=== PATIENT | male | born 1955 | race Caucasian/White ===

== ENCOUNTER 2018-10-03 09:33 | Outpatient (CLI) | payer MEDICARE, MEDICAID, SELFPAY ==
[2018-10-03 15:59] LABS: Abs Immature Grans 0.03 k/cumm (0.0-0.09); Absolute Basophil Count 0.03 k/cumm (0.0-0.2); Absolute Lymphocyte Count 2.27 k/cumm (1.2-3.4); Absolute Monocyte Count 0.87 k/cumm (0.11-0.7); Absolute Neutrophil Count 5.11 k/cumm (1.2-6.7); Basophils % 0.4; Eosinophils % 1.2; HCT 50.8 % (40.0-50.0); HGB 17.4 g/dL (13.5-17.5); Immature Grans % 0.4; Mean Corp. HGB Concentration 34.3 g/dL (32.0-36.0); Mean Corpuscular Hemoglobin 32.2 pg (27.0-33.0); Mean Corpuscular Volume 94.1 fL (80-95); Mean Platelet Volume 11.4 fL (8.0-11.0); Monocytes % 10.3; Neutrophils % 60.7; Platelet Count 158 x1000/uL (130-400); RBC Distribution Width 14.9 % (11.8-14.1); White Blood Cell Count 8.41 k/cumm (4.4-10.8)
[2018-10-03 16:14] LABS: ALT 66 U/L (12-78); AST 33 U/L (15-37); Albumin 4.1 g/dL (3.4-5.0); Alkaline Phosphatase 62 U/L (46-116); Anion Gap 11.2 mmol/L (3-11); BUN 25 mg/dL (7-18); Bilirubin, Total 0.4 mg/dL (0.2-1.0); CO2 26.8 mmol/L (21.0-32.0); CREATININE 1.17 mg/dL (0.70-1.30); Calcium 9.3 mg/dL (8.5-10.1); Chloride 102 mmol/L (98-107); Glucose 106 mg/dL (70-100); LDH 174 U/L (85-227); Potassium 4.3 mmol/L (3.5-5.1); Sodium 140 mmol/L (136-145); Total Protein 6.9 g/dL (6.4-8.2)
== END 2018-10-03 09:53 ==
LOC: LBN 09:42 → LBO 15:24
PROVIDERS: PCP Internal Medicine; Visit Provider Internal Medicine Hematology & Oncology
DX: C82.00 Follicular lymphoma grade I, unspecified site (principal)
CPT/HCPCS: 36415; 80053; 83615; 85025

== ENCOUNTER 2019-03-27 10:16 | Outpatient (CLI) | payer MEDICARE, SELFPAY ==
[2019-03-27 17:16] LABS: Abs Immature Grans 0.02 k/cumm (0.0-0.09); Absolute Basophil Count 0.02 k/cumm (0.0-0.2); Absolute Eosinophil Count 0.13 k/cumm (0.0-0.7); Absolute Lymphocyte Count 1.59 k/cumm (1.2-3.4); Absolute Monocyte Count 0.65 k/cumm (0.11-0.7); Absolute Neutrophil Count 4.29 k/cumm (1.2-6.7); Basophils % 0.3; Eosinophils % 1.9; HCT 48.7 % (40.0-50.0); HGB 16.7 g/dL (13.5-17.5); Immature Grans % 0.3; Lymphocytes % 23.7; Mean Corp. HGB Concentration 34.3 g/dL (32.0-36.0); Mean Corpuscular Hemoglobin 32.6 pg (27.0-33.0); Mean Corpuscular Volume 95.1 fL (80-95); Monocytes % 9.7; Neutrophils % 64.1; Platelet Count 152 x1000/uL (130-400); RBC 5.12 m/cumm (4.50-6.00); RBC Distribution Width 14.4 % (11.8-14.1)
[2019-03-27 18:31] LABS: ALT 67 U/L (12-78); AST 36 U/L (15-37); Albumin 3.9 g/dL (3.4-5.0); Alkaline Phosphatase 65 U/L (46-116); BUN 21 mg/dL (7-18); Bilirubin, Total 0.3 mg/dL (0.2-1.0); Calcium 9.1 mg/dL (8.5-10.1); Chloride 104 mmol/L (98-107); Glucose 115 mg/dL (70-100); LDH 174 U/L (85-227); Potassium 4.2 mmol/L (3.5-5.1); Sodium 141 mmol/L (136-145); Total Protein 6.5 g/dL (6.4-8.2)
== END 2019-03-27 10:36 ==
PROVIDERS: PCP Internal Medicine; Visit Provider Internal Medicine Hematology & Oncology
DX: C82.00 Follicular lymphoma grade I, unspecified site (principal)
CPT/HCPCS: 36415; 80053; 83615; 85025

== ENCOUNTER 2019-09-07 15:50 | Outpatient (CLI) | payer MEDICARE, SELFPAY ==
[2019-09-07 16:06] LABS: Abs Immature Grans 0.04 k/cumm (0.0-0.09); Absolute Basophil Count 0.03 k/cumm (0.0-0.2); Absolute Eosinophil Count 0.16 k/cumm (0.0-0.7); Absolute Monocyte Count 0.87 k/cumm (0.11-0.7); Absolute Neutrophil Count 5.91 k/cumm (1.2-6.7); Basophils % 0.3; Eosinophils % 1.8; HCT 51.2 % (40.0-50.0); HGB 17.5 g/dL (13.5-17.5); Immature Grans % 0.4; Lymphocytes % 21.3; Mean Corp. HGB Concentration 34.2 g/dL (32.0-36.0); Mean Corpuscular Hemoglobin 32.3 pg (27.0-33.0); Mean Corpuscular Volume 94.5 fL (80-95); Mean Platelet Volume 10.9 fL (8.0-11.0); Monocytes % 9.8; Neutrophils % 66.4; Platelet Count 166 x1000/uL (130-400); RBC 5.42 m/cumm (4.50-6.00); RBC Distribution Width 14.8 % (11.8-14.1); White Blood Cell Count 8.91 k/cumm (4.4-10.8)
[2019-09-07 17:03] LABS: ALT 62 U/L (16-63); AST 29 U/L (15-37); Albumin 4.1 g/dL (3.4-5.0); Alkaline Phosphatase 71 U/L (46-116); Anion Gap 11.8 mmol/L (3-11); BUN 21 mg/dL (7-18); Bilirubin, Total 0.4 mg/dL (0.2-1.0); CO2 26.2 mmol/L (21.0-32.0); Chloride 103 mmol/L (98-107); Glucose 112 mg/dL (74-106); LDH 151 U/L (85-227); Potassium 4.3 mmol/L (3.5-5.1); Sodium 141 mmol/L (136-145); Total Protein 6.8 g/dL (6.4-8.2)
== END 2019-09-07 16:10 ==
PROVIDERS: PCP Internal Medicine; Visit Provider Internal Medicine Hematology & Oncology
DX: C82.91 Follicular lymphoma, unspecified, lymph nodes of head, face, and neck (principal)
CPT/HCPCS: 36415; 80053; 83615; 85025

== ENCOUNTER 2019-10-24 13:10 | Outpatient (REF) | payer MEDICARE, SELFPAY ==
[2019-10-24 20:47] LABS: Abs Immature Grans 0.03 k/cumm (0.0-0.09); Absolute Basophil Count 0.03 k/cumm (0.0-0.2); Absolute Eosinophil Count 0.14 k/cumm (0.0-0.7); Absolute Lymphocyte Count 1.91 k/cumm (1.2-3.4); Absolute Monocyte Count 1.03 k/cumm (0.11-0.7); Absolute Neutrophil Count 7.65 k/cumm (1.2-6.7); Basophils % 0.3; Eosinophils % 1.3; HCT 49.3 % (40.0-50.0); HGB 16.8 g/dL (13.5-17.5); Immature Grans % 0.3 %; Lymphocytes % 17.7; Mean Corp. HGB Concentration 34.1 g/dL (32.0-36.0); Mean Corpuscular Hemoglobin 31.8 pg (27.0-33.0); Mean Corpuscular Volume 93.4 fL (80-95); Mean Platelet Volume 11.9 fL (8.0-11.0); Monocytes % 9.5; Neutrophils % 70.9; Platelet Count 195 x1000/uL (130-400); RBC 5.28 m/cumm (4.50-6.00); RBC Distribution Width 14.3 % (11.8-14.1); White Blood Cell Count 10.79 k/cumm (4.4-10.8)
== END 2019-10-24 13:30 ==
LOC: NCHCN 13:10
PROVIDERS: PCP Internal Medicine; Visit Provider Physician Assistant
DX: C85.90 Non-Hodgkin lymphoma, unspecified, unspecified site (principal)
CPT/HCPCS: 85025

== ENCOUNTER 2019-11-07 16:38 | Outpatient (REF) | payer MEDICARE, SELFPAY ==
[2019-11-07 20:33] LABS: Hemoglobin A1C 7.4 % (3.8-5.6)
== END 2019-11-07 16:58 ==
LOC: NCHCN 16:38
PROVIDERS: PCP Internal Medicine; Visit Provider Physician Assistant
DX: R73.09 Other abnormal glucose (principal)
CPT/HCPCS: 83036

== ENCOUNTER 2020-03-12 01:17 | Outpatient (CLI) | payer MEDICARE, SELFPAY ==
[2020-03-12] MEDS: Omnipaque 350 MG/ML 50 ML BTL PO (09:04)
[2020-03-12] MEDS: Breeza Beverage 473 ML BTL PO (09:05)
[2020-03-12 09:22] LABS: Abs Immature Grans 0.02 k/cumm (0.0-0.09); Absolute Basophil Count 0.03 k/cumm (0.0-0.2); Absolute Eosinophil Count 0.14 k/cumm (0.0-0.7); Absolute Lymphocyte Count 1.56 k/cumm (1.2-3.4); Absolute Monocyte Count 0.65 k/cumm (0.11-0.7); Absolute Neutrophil Count 4.18 k/cumm (1.2-6.7); Basophils % 0.5; Eosinophils % 2.1; HCT 44.8 % (40.0-50.0); HGB 15.4 g/dL (13.5-17.5); Immature Grans % 0.3 %; Lymphocytes % 23.7; Mean Corp. HGB Concentration 34.4 g/dL (32.0-36.0); Mean Corpuscular Hemoglobin 32.9 pg (27.0-33.0); Mean Corpuscular Volume 95.7 fL (80-95); Mean Platelet Volume 11.1 fL (8.0-11.0); Monocytes % 9.9; Neutrophils % 63.5; Platelet Count 161 x1000/uL (130-400); RBC 4.68 m/cumm (4.50-6.00); RBC Distribution Width 14.7 % (11.8-14.1); White Blood Cell Count 6.58 k/cumm (4.4-10.8)
[2020-03-12 09:37] LABS: ALT 60 U/L (16-63); AST 34 U/L (15-37); Albumin 3.7 g/dL (3.4-5.0); Alkaline Phosphatase 58 U/L (46-116); Anion Gap 7.4 mmol/L (3-11); BUN 18 mg/dL (7-18); Bilirubin, Total 0.4 mg/dL (0.2-1.0); CO2 28.6 mmol/L (21.0-32.0); CREATININE 0.96 mg/dL (0.70-1.30); Calcium 8.4 mg/dL (8.5-10.1); Chloride 102 mmol/L (98-107); Glucose 159 mg/dL (74-106); LDH 160 U/L (85-227); Potassium 4.1 mmol/L (3.5-5.1); Sodium 138 mmol/L (136-145); Total Protein 6.4 g/dL (6.4-8.2)
[2020-03-12] MEDS: Normal Saline - Diluent 50 ML VIAL IV (10:29)
[2020-03-12] MEDS: Omnipaque 350 MG/ML 100 ML BTL IJ (10:29)
[2020-03-12] MEDS: Normal Saline Flush 10 ML SYR IVP (10:31)
--- NOTE | 2020-03-12 10:32 | DI.CT_ITS ---
EXAM: CT NECK CHEST ABD PEL W CLINICAL HISTORY: FOLLICULAR LYMPHOMA,C82.00,RESTAGING EXAM, COMPARE TO PRIOR. TECHNIQUE: Imaging Protocol: Axial computed tomography images with coronal and sagittal reformatted images were created and reviewed CONTRAST MATERIAL: Intravenous: Omnipaque 350 Contrast volume:150 cc contrast route:IV - Oral: Yes COMPARISON: CT CT CHEST ABDOMEN AND P from 01/01/2016 FINDINGS: CHEST: Heart and great vessels: There is no evidence pulmonary emboli or aortic dissection. The heart size i s normal. Coronary artery calcifications are seen. There is minimal aortic calcification. There are no pleural or pericardial effusions. Adenopathy: Small mediastinal and hilar lymph nodes, stable.. Lungs: No pulmonary nodules, mass or infiltrate. Bones: No lytic or blastic bony lesions are seen. There are degenerative disc changes. There is no evidence of spine or rib fracture. ABDOMEN: Liver: The liver is again noted to be enlarged and shows severe fatty infiltration.. No measurable m ass. Gallbladder and biliary tract: No radiodense calculus or dilation. Pancreas: Normal density, no abnormal calcifications or inflammatory process. Spleen: Normal. Kidneys: Normal size, contour and axis. No radiodense stones or obstructive uropathy. No masses seen. Small bilateral renal cysts. Circumaortic left renal vein. Adrenal glands: No masses seen. Abdominal Aorta: Abdominal portion non-dilated. Hzgl-bd-vlnelpsi calcification. PELVIS: Bladder: No gross wall thickening, focal mass or stones. Bowel: No obstruction or bowel wall thickening. Peritoneal cavity: No ascites, focal collection or mesenteric inflammatory response. Bones: No suspicious lesions or fractures. Degenerative disc changes and facet degenerative changes. Reproductive organs: Within normal limits. Lymph nodes: 12 millimeter left para-aortic lymph node. Other scattered lymph nodes measuring less t sadler 1 cm in the para-aortic region. There are several enlarged bilateral iliac chain lymph nodes, me asuring on the order of 15 millimeters. There is a right distal external iliac lymph node measuring 2.5 cm. A right inguinal lymph node measuring 14 millimeters is seen. Neck CT: No enlarged lymph nodes are seen. The parotid and submandibular glands are unremarkable. There is a small cyst in the left lobe of the thyroid. There is mild calcification at the common carotid bulbs with no significant stenosis. Mucous retention is noted within both maxillary sinuses. Degenerativ e disc changes are seen in the cervical spine. Impression: Interval increase in size of para aortic and bilateral external iliac chain lymph nodes as well as r ight inguinal lymph node.. The largest lymph node measures 2.5 cm in the distal right external iliac chain. No enlarged lymph nodes are seen in the neck or chest. RADIATION DOSE DELIVERED: 3,329.17mGy.cm Total DLP DATA REPOSITORY: All CT scans at this facility are submitted to the National Radiology Data Registry (NRDR) Dose Index Registry (DIR) with the [employer] (ACR). RADIATION OPTIMIZATION: All CT scans at this facility use at least one of these dose optimization te chniques: automated exposure control; mA and/or kV adjustment per patient size (includes targeted exa ms where dose is matched to clinical indication); or iterative reconstruction.
== END 2020-03-12 01:37 ==
PROVIDERS: PCP Internal Medicine; Visit Provider Internal Medicine Hematology & Oncology
DX: C82.00 Follicular lymphoma grade I, unspecified site (principal); Z72.0 Tobacco use; E66.01 Morbid (severe) obesity due to excess calories; Z68.41 Body mass index [BMI] 40.0-44.9, adult; Z12.89 Encounter for screening for malignant neoplasm of other sites; R59.0 Localized enlarged lymph nodes; K76.0 Fatty (change of) liver, not elsewhere classified; N28.1 Cyst of kidney, acquired
CPT/HCPCS: 70491; 74177; 80053; 71260; 83615; 85025; J3490; Q9967

== ENCOUNTER 2020-05-02 08:25 | Day surgery (SDC) | payer MEDICARE, SELFPAY ==
[2020-05-02 08:47] VITALS: BP 97/76; PULSE 60; RESP 16; TEMP 36.1; O2SAT 94
[2020-05-02] MEDS: Balanced Salt Soln.-PLUS 500 ML BAG (10:13)
[2020-05-02] MEDS: Tetracaine 0.5% 4 ML BTL OS (10:18)
[2020-05-02] MEDS: Lidocaine 1% Pres-Free 5 ML VIAL (10:18)
[2020-05-02] MEDS: Povidone-Iodine Ophth 30 ML BTL OS (10:19)
[2020-05-02] MEDS: Lidocaine 2% Jelly 6 ML SYR (10:19)
[2020-05-02] MEDS: Moxifloxacin-PF 1 MG/ML VIAL (10:30)
--- NOTE | 2020-05-02 10:46 | W.PM.DSUDISC ---
Discharge Plan Disposition Patient Disposition: HOME Condition: Good Discharge Details Attending Provider: Sukhi Cunningham Primary Care Provider: Reynaldo Hassan Meds and New Rx's Prescriptions: No Action multivitamin Tablet 1 tab PO DAILY RF: 0 diltiazem HCl 180 mg capsule,extended release 24 hr 360 mg PO HS RF: 0 metoprolol succinate 50 mg tablet extended release 24 hr 25 mg PO DAILY RF: 0 citalopram 20 mg tablet 20 mg PO DAILY RF: 0 rosuvastatin 20 mg Tablet 20 mg PO DAILY RF: 0 Eliquis 5 mg tablet 5 mg PO BID RF: 0 aspirin 162.5 mg Capsule,Extended Release 24hr 162 mg PO DAILY RF: 0 nitroglycerin 0.4 mg Tablet, Sublingual 0.4 mg sublingual DIRECTED PRNRF: 0 Discharge Instructions Stand Alone Forms: Post-op Topical Cataract, Anitra Aguilar (DSU) Discharge Orders Discharge Orders: Discharge Order (Routine); Ordered 05/02/20 Ordered By: Sukhi Cunningham DS: Diagnosis Discharge Diagnosis (1) Posterior subcapsular age-related cataract of left eye: Status: Resolved (2) Nuclear sclerotic cataract of left eye: Status: Resolved
--- NOTE | 2020-05-02 10:47 | W.PM.OP ---
Date of service: 05/02/20 Time of Service: 10:47 Operative Note Operative Note DATE OF PROCEDURE: 05/02/20 POST-OP DIAGNOSIS: same PROCEDURE: Cataract extraction using phacoemulsification with intraocular lens implant, left eye SURGEON: Sukhi Cunningham ANESTHESIA: MAC and local (sub-tenon's anesthetic infiltration) PATHOLOGY: none sent COMPLICATIONS: None Patient was transported to: same day Patient's condition: stable Implants: [employer] / [employer] Tecnis [id number] Indications: Progressive decreased vision due to cataract, left eye Procedure Description: CATARACT SURGERY OPERATIVE REPORT PREOPERATIVE DIAGNOSIS: Nuclear/posterior subcapsular cataract, left eye POSTOPERATIVE DIAGNOSIS: Same OPERATION: Cataract extraction using phacoemulsification with posterior chamber intraocular lens implant, left eye. IOL: IOL Road Consultant/Model: [employer] / ELIZABETH Tecnis ZCB00 IOL Power: + 21.50 diopters IOL Serial Number: [id number] Optic Diameter: 6.0mm Haptic/Overall Diameter: 13.0mm PHACO INFO: [employer]ur[employer] Vision System with OZil and Active Fluidics Cumulative Dispersed Energy (CDE): 2.96 seconds SURGEON: Sukhi Cunningham MD, RODOLFO ANESTHESIA: Monitored Anesthesia Care (MAC), with local sub-tenon's anesthetic infiltration COMPLICATIONS: None SPECIMENS: None INDICATIONS FOR PROCEDURE: The patient is a 65-year-old gentleman with history of diminished visual acuity in both eyes secondary to the development of bilateral cataracts, right eye worse than left. He has already undergone cataract surgery in his right eye on 02/27/2020. He now presents for cataract surgery in the left eye. PROCEDURE: The correct surgical eye was identified and marked as the left eye and the pupil was dilated in the preoperative area using mydriatics and cycloplegics. The dilated pupil size was 7.0 mm. Oral sedation was administered in the form of an Imprimis MKO Melt (midazolam 3mg/ketamine 25mg/ondansetron 2mg). The patient was brought to the operating room where cardiopulmonary monitoring was instituted and surgical time-out was performed, confirming the correct operative eye and IOL power. Topical anesthesia was administered and ophthalmic povidone-iodine 5% was instilled into the conjunctival fornices. Lidocaine gel was applied to the cornea and the denise-ocular area was prepped with Betadine 10% solution and draped in the usual sterile fashion for intraocular surgery, including an aperture drape. A Tegaderm transparent film dressing was cut in half and used to cover the lashes and lid margins. Care was taken to sequester the lashes and lid margins under the Tegaderm dressing. A lid speculum was placed between the lids of the operative eye and the Storm-Luke operating microscope was maneuvered into position. Duy scissors were then used to make a conjunctival buttonhole approximately 6mm posterior to the limbus in the inferonasal quadrant. Blunt dissection was carried out to expose bare sclera, and a blunt-tipped sub-tenon?s anesthesia cannula was introduced and passed posteriorly along the globe where non-preserved plain lidocaine was injected into posterior sub-Tenon?s space. A sideport knife was used to make a paracentesis port superior/superiortemporally. Intraocular phenylephrine/lidocaine was injected into the anterior chamber. The anterior chamber was then filled with Healon Pro. A 2.4mm keratome knife was used to create a half-thickness groove at the limbus and then to construct a three-plane near-clear corneal tunnel extending 2.0mm into clear cornea in the temporal position. . A flap was raised on the anterior capsule and capsulorhexis forceps were used to complete a continuous curvilinear capsulorhexis of 4.8 mm. Capsulorhexis was slightly smaller than usual due to constant patient movement as well as poor red reflex nasally. The capsule was noted to be quite thin with a deep anterior chamber. Balanced salt solution was then used to perform cortical cleaving hydrodissection and nuclear hydrodelineation until the lens could be freely rotated within the capsular bag. The lens nucleus was then disassembled and removed within the capsular bag and iris plane using phacoemulsification. Residual cortical material was removed using the 45-degree angled silicone I/A tip with 0.3mm port. The posterior capsule was carefully polished to remove as much residual lens epithelial cells as safely possible. The capsular bag was then inflated and the anterior chamber deepened with viscoelastic. The lens implant described above was inserted into the capsular bag using the ELIZABETH Council Injector. A Kuglen hook was used to dial the IOL into position. Residual viscoelastic was then removed first from posterior to the IOL, then from the anterior chamber using the I/A handpiece. The lens implant was noted to center nicely within the capsular bag. The incisions were stromally hydrated, and the anterior chamber was reformed using BSS. Then 0.5cc of moxifloxacin 1.0mg/ml were injected into the capsular bag and anterior chamber. The incisions were checked with a Weck spear and found to be secure. Several drops of ophthalmic povidone-iodine 5% were then applied to the eye followed by two drops of Imprimis combination prednisolone/moxifloxacin/nepafenac solution. The drapes were removed and a clear plastic protective eye shield was placed over the eye. The patient was then returned to [facility] in stable condition.
[2020-05-02 11:15] VITALS: BP 98/55; PULSE 70; RESP 16; TEMP 35.7; O2SAT 93
== END 2020-05-02 11:25 | disposition home or self-care (01) ==
PROVIDERS: PCP Internal Medicine; Visit Provider Ophthalmology
PROC: (CPT 66984; principal; 2020-05-02 10:30)
DX: H25.042 Posterior subcapsular polar age-related cataract, left eye (principal); H25.12 Age-related nuclear cataract, left eye; Z98.41 Cataract extraction status, right eye; Z96.1 Presence of intraocular lens
CPT/HCPCS: 66984; V2632

== ENCOUNTER 2020-06-16 07:56 | Outpatient (CLI) | payer MEDICARE, SELFPAY ==
[2020-06-16 14:02] LABS: Abs Immature Grans 0.06 10^3/uL (0.0-0.06); Absolute Basophil Count 0.04 10^3/uL (0.0-0.2); Absolute Eosinophil Count 0.11 10^3/uL (0.0-0.7); Absolute Lymphocyte Count 1.86 10^3/uL (1.2-3.4); Absolute Monocyte Count 0.72 10^3/uL (0.1-0.8); Absolute Neutrophil Count 4.95 10^3/uL (1.2-6.7); Basophils % 0.5; Eosinophils % 1.4; HCT 48.8 % (40.0-50.0); HGB 16.4 g/dL (13.5-17.5); Immature Grans % 0.8; MCH 32.5 pg (27.0-33.0); MCHC 33.6 % (32.0-36.0); MCV 96.6 fL (80-95); MPV 10.9 fL (8.0-11.0); Monocytes % 9.3; Nucleated RBC 0 %; Platelet Count 179 10^3/uL (130-400); RBC 5.05 10^6/uL (4.36-5.78); RDW 13.9 % (11.8-14.1); RDW-SD 49.1 fL; WBC 7.74 10^3/uL (4.4-10.8)
[2020-06-16 14:19] LABS: ALT 69 U/L (16-63); AST 35 U/L (15-37); Albumin 3.9 g/dL (3.4-5.0); Alkaline Phosphatase 62 U/L (46-116); BUN 27 mg/dL (7-18); Bilirubin, Total 0.4 mg/dL (0.2-1.0); CREATININE 1.07 mg/dL (0.70-1.30); Calcium 9.4 mg/dL (8.5-10.1); Chloride 103 mmol/L (98-107); Glucose 124 mg/dL (74-106); LDH 135 U/L (85-227); Potassium 4.3 mmol/L (3.5-5.1); Sodium 140 mmol/L (136-145); Total Protein 6.8 g/dL (6.4-8.2)
== END 2020-06-16 08:16 ==
PROVIDERS: PCP Internal Medicine; Visit Provider Internal Medicine Hematology & Oncology
DX: C82.00 Follicular lymphoma grade I, unspecified site (principal)
CPT/HCPCS: 36415; 80053; 83615; 85025

== ENCOUNTER 2020-07-31 13:56 | Outpatient (REF) | payer MEDICARE, SELFPAY ==
[2020-07-31 19:04] LABS: Abs Immature Grans 0.03 10^3/uL (0.0-0.06); Absolute Basophil Count 0.06 10^3/uL (0.0-0.2); Absolute Eosinophil Count 0.16 10^3/uL (0.0-0.7); Absolute Lymphocyte Count 2.04 10^3/uL (1.2-3.4); Absolute Monocyte Count 0.73 10^3/uL (0.1-0.8); Absolute Neutrophil Count 5.27 10^3/uL (1.2-6.7); Basophils % 0.7; Eosinophils % 1.9; HCT 54.9 % (40.0-50.0); Immature Grans % 0.4; Lymphocytes % 24.6; MCH 31.6 pg (27.0-33.0); MCHC 32.8 % (32.0-36.0); MCV 96.3 fL (80-95); MPV 12.3 fL (8.0-11.0); Monocytes % 8.8; Neutrophils % 63.6; Nucleated RBC 0 %; Platelet Count 181 10^3/uL (130-400); RDW 13.4 % (11.8-14.1); RDW-SD 47.6 fL; WBC 8.29 10^3/uL (4.4-10.8)
[2020-07-31 19:24] LABS: ALT 63 U/L (16-63); AST 31 U/L (15-37); Albumin 4.1 g/dL (3.4-5.0); Alkaline Phosphatase 66 U/L (46-116); BUN 19 mg/dL (7-18); Bilirubin, Total 0.5 mg/dL (0.2-1.0); CREATININE 1.06 mg/dL (0.70-1.30); Calcium 9.3 mg/dL (8.5-10.1); Calculated LDL 71 mg/dL (<100); Chloride 101 mmol/L (98-107); Cholesterol 155 mg/dL (<200); Glucose 197 mg/dL (74-106); HDL Cholesterol 38 mg/dL (40-60); Potassium 4.6 mmol/L (3.5-5.1); Sodium 140 mmol/L (136-145); TSH (W/Ref FT4) 3.38 uIU/mL (0.36-3.74); Total Protein 6.8 g/dL (6.4-8.2); Triglyceride 232 mg/dL (<150)
[2020-07-31 19:25] LABS: Hemoglobin A1C 7.6 % (<5.7)
== END 2020-07-31 14:16 ==
LOC: NCHCN 13:56
PROVIDERS: PCP Internal Medicine; Visit Provider Physician Assistant
DX: E78.5 Hyperlipidemia, unspecified (principal); E11.9 Type 2 diabetes mellitus without complications; I48.91 Unspecified atrial fibrillation; F41.8 Other specified anxiety disorders; F17.200 Nicotine dependence, unspecified, uncomplicated; L40.9 Psoriasis, unspecified; E66.9 Obesity, unspecified
CPT/HCPCS: 80053; 80061; 83036; 84443; 85025

== ENCOUNTER 2020-11-04 01:34 | Outpatient (CLI) | payer MEDICARE, SELFPAY ==
--- NOTE | 2020-11-04 09:00 | DI.CT_ITS ---
EXAM: CT NECK CHEST ABD PEL W CLINICAL HISTORY: H/O FOLLICULAR LYMPHOMA,SUSPECTED RECURRENCE,COMPARE TO 02/2020 TECHNIQUE: Imaging Protocol: Axial computed tomography images with coronal and sagittal reformatted images were created and reviewed CONTRAST MATERIAL: Intravenous: Omnipaque 350 Contrast volume:structured data in ml Oral: yes / no COMPARISON: CT CT NECK CHEST ABD PEL W from 03/12/2020 FINDINGS: NECK: Orbits and orbital soft tissues: Within normal limits. Visualized paranasal sinuses: Opacification is noted of a few ethmoid air cells bilaterally. There is mucosal thickening in the right sphenoid sinus and left maxillary sinus. There is a small air-flu id level in the right maxillary sinus in addition to mucosal thickening. Nasopharynx: Within normal limits. Oropharynx: Within normal limits. Hypopharynx: Within normal limits. Larynx: Within normal limits. Retropharyngeal space: Within normal limits. Parotids/submandibular: Within normal limits. Thyroid gland: Stable nodule in the lower pole of the right thyroid gland. Lymphadenopathy: There is scattered lymph nodes seen along the level one to level three all measurin g less than 8 mm in short axis diameter which are physiologic in nature. Trachea: Within normal limits. Lung apices: Within normal limits. Bones: Degenerative changes. Carotids/Jugular: Atherosclerosis. Soft tissues: Within normal limits. CHEST: Tracheobronchial tree: Patent where visualized. Pulmonary parenchyma: No consolidation or dominant measurable mass. Mild paraseptal emphysematous jorje nges. Dependent atelectasis. There is a 4 mm noncalcified pulmonary nodule in the left upper lobe. (Series 8, image 143). Visualized thyroid gland: Stable 5 mm hypodense nodule in the lower pole of the right thyroid gland. Mediastinum and Dai: Stable mediastinal and hilar lymph nodes. No significant axillary adenopathy. Pleura: No effusion or pneumothorax. Heart: The heart is not dilated. Moderate coronary artery calcification. No pericardial effusion. Aorta: Thoracic aorta non-dilated. Atherosclerosis. Lymph nodes: Please see above. Soft tissues: Unremarkable. Bones:Degenerative changes. No suspicious lytic or sclerotic lesions. ABDOMEN: Liver: Diffuse fatty infiltration of the liver. No measurable mass. Portal, Superior Mesenteric, and Splenic Veins: Unremarkable. Gallbladder and Biliary Tract: No radiodense calculus or dilation. Pancreas: Normal density, no abnormal calcifications or inflammatory process. Spleen: Normal. The spleen measures 9.5 cm in length. Adrenals: No masses seen. Kidneys: Normal size, contour and axis. 4 mm nonobstructing stone in the midpole of the left kidney. Bilateral renal cysts. No further follow-up is recommended. Note is made of a retroaortic left saúl al vein. Abdominal Aorta: Abdominal portion non-dilated. Atherosclerosis. Bowel: No obstruction or bowel wall thickening. Appendix is unremarkable. Diverticulosis of the desce nding and sigmoid colon. No evidence of acute diverticulitis. Peritoneal Cavity: No ascites, collection or mesenteric inflammatory response. No free air. Lymph Nodes: There are stable retroperitoneal and pelvic lymph nodes. The largest is again seen in t he right distal external iliac chain and measures 2.6 cm (series 10, image 849), compared with 2.5 cm on the prior examination. No new abdominal or pelvic adenopathy is present. Bones: Degenerative changes. Soft Tissues: Unremarkable. PELVIS: Bladder: Symmetric distention, no gross wall thickening. Reproductive Organs: Unremarkable as visualized. Lymph Nodes: Please see above. Bones: Degenerative changes. IMPRESSION: 1. Stable abdominal pelvic adenopathy. 2. Spleen measures 9.5 cm in length. 3. Stable mediastinal and hilar lymph nodes. 4. 4 mm left upper lobe pulmonary nodule. Follow-up examination in 6-12 months is recommended for re -evaluation. 5. No significant adenopathy in the neck. 6. Chronic sinusitis. Air-fluid level in the right maxillary sinus which may represent an acute sinu s infection. Please correlate clinically. RADIATION DOSE DELIVERED: Total DLP DATA REPOSITORY: All CT scans at this facility are submitted to the National Radiology Data Registry (NRDR) Dose Index Registry (DIR) with the [employer] (ACR). RADIATION OPTIMIZATION: All CT scans at this facility use at least one of these dose optimization te chniques: automated exposure control; mA and/or kV adjustment per patient size (includes targeted exa ms where dose is matched to clinical indication); or iterative reconstruction.
[2020-11-04 09:23] LABS: Abs Immature Grans 0.03 10^3/uL (0.0-0.06); Absolute Basophil Count 0.04 10^3/uL (0.0-0.2); Absolute Eosinophil Count 0.11 10^3/uL (0.0-0.7); Absolute Lymphocyte Count 1.81 10^3/uL (1.2-3.4); Absolute Monocyte Count 0.64 10^3/uL (0.1-0.8); Absolute Neutrophil Count 4.77 10^3/uL (1.2-6.7); Basophils % 0.5; Eosinophils % 1.5; HCT 49.2 % (40.0-50.0); HGB 16.9 g/dL (13.5-17.5); Immature Grans % 0.4; Lymphocytes % 24.5; MCH 32.3 pg (27.0-33.0); MCHC 34.3 % (32.0-36.0); MCV 94.1 fL (80-95); Monocytes % 8.6; Neutrophils % 64.5; Nucleated RBC 0 %; Platelet Count 166 10^3/uL (130-400); RBC 5.23 10^6/uL (4.36-5.78); RDW 13.9 % (11.8-14.1); RDW-SD 48.6 fL
[2020-11-04 09:37] LABS: ALT 62 U/L (16-63); AST 32 U/L (15-37); Albumin 3.9 g/dL (3.4-5.0); Alkaline Phosphatase 63 U/L (46-116); Anion Gap 10.1 mmol/L (3-11); BUN 24 mg/dL (7-18); Bilirubin, Total 0.6 mg/dL (0.2-1.0); CO2 23.9 mmol/L (21.0-32.0); Calcium 8.9 mg/dL (8.5-10.1); Chloride 101 mmol/L (98-107); Glucose 180 mg/dL (74-106); LDH 147 U/L (85-227); Potassium 4.3 mmol/L (3.5-5.1); Sodium 135 mmol/L (136-145); Total Protein 6.9 g/dL (6.4-8.2)
== END 2020-11-04 01:54 ==
PROVIDERS: PCP Internal Medicine; Visit Provider Internal Medicine Hematology & Oncology
DX: C82.08 Follicular lymphoma grade I, lymph nodes of multiple sites (principal); J32.0 Chronic maxillary sinusitis
CPT/HCPCS: 70491; 74177; 80053; 71260; 83615; 85025

== ENCOUNTER 2021-02-19 15:21 | Outpatient (REF) | payer MEDICARE, SELFPAY ==
[2021-02-19 16:14] LABS: COMMENT (LAB VIEW ONLY) 142.21 mg/dL; Microalb ug/mg Crea 51.8 ug/mg Cr
== END 2021-02-19 15:22 | disposition home or self-care (01) ==
LOC: NCHCN 15:21
PROVIDERS: PCP Internal Medicine; Visit Provider Physician Assistant
DX: E11.9 Type 2 diabetes mellitus without complications (principal)
CPT/HCPCS: 82043; 82570

== ENCOUNTER 2021-03-02 10:01 | Outpatient (CLI) | payer MEDICARE, SELFPAY ==
[2021-03-02 13:08] LABS: Abs Immature Grans 0.04 10^3/uL (0.0-0.06); Absolute Basophil Count 0.04 10^3/uL (0.0-0.2); Absolute Lymphocyte Count 1.73 10^3/uL (1.2-3.4); Absolute Neutrophil Count 5.62 10^3/uL (1.2-6.7); Basophils % 0.5; Eosinophils % 1.2; HCT 48.4 % (40.0-50.0); HGB 16.7 g/dL (13.5-17.5); Immature Grans % 0.5; Lymphocytes % 20.8; MCH 32.9 pg (27.0-33.0); MCHC 34.5 % (32.0-36.0); MCV 95.5 fL (80-95); MPV 10.9 fL (8.0-11.0); Monocytes % 9.6; Neutrophils % 67.4; Nucleated RBC 0 %; Platelet Count 172 10^3/uL (130-400); RBC 5.07 10^6/uL (4.36-5.78); RDW 13.7 % (11.8-14.1); WBC 8.33 10^3/uL (4.4-10.8)
[2021-03-02 13:20] LABS: ALT 68 U/L (16-63); AST 41 U/L (15-37); Albumin 3.8 g/dL (3.4-5.0); Alkaline Phosphatase 63 U/L (46-116); Anion Gap 10.4 mmol/L (3-11); BUN 23 mg/dL (7-18); Bilirubin, Total 0.5 mg/dL (0.2-1.0); CO2 25.6 mmol/L (21.0-32.0); Chloride 104 mmol/L (98-107); Glucose 159 mg/dL (74-106); LDH 156 U/L (85-227); Potassium 4.2 mmol/L (3.5-5.1); Sodium 140 mmol/L (136-145); Total Protein 6.8 g/dL (6.4-8.2)
== END 2021-03-02 10:02 | disposition home or self-care (01) ==
LOC: LBO 10:08
PROVIDERS: PCP Internal Medicine; Visit Provider Internal Medicine Hematology & Oncology
DX: C82.08 Follicular lymphoma grade I, lymph nodes of multiple sites (principal)
CPT/HCPCS: 36415; 80053; 83615; 85025

== ENCOUNTER 2021-07-08 00:50 | Outpatient (CLI) | payer MEDICARE, SELFPAY ==
[2021-07-08 12:13] LABS: Abs Immature Grans 0.04 10^3/uL (0.0-0.06); Absolute Basophil Count 0.05 10^3/uL (0.0-0.2); Absolute Eosinophil Count 0.17 10^3/uL (0.0-0.7); Absolute Monocyte Count 0.88 10^3/uL (0.1-0.8); Absolute Neutrophil Count 4.93 10^3/uL (1.2-6.7); Basophils % 0.6; Eosinophils % 2.1; HCT 49.9 % (40.0-50.0); HGB 16.6 g/dL (13.5-17.5); Immature Grans % 0.5; Lymphocytes % 23.8; MCH 32.4 pg (27.0-33.0); MCHC 33.3 % (32.0-36.0); MCV 97.3 fL (80-95); MPV 10.9 fL (8.0-11.0); Nucleated RBC 0 %; Platelet Count 173 10^3/uL (130-400); RBC 5.13 10^6/uL (4.36-5.78); RDW 13.9 % (11.8-14.1); RDW-SD 50.7 fL; WBC 7.97 10^3/uL (4.4-10.8)
[2021-07-08 12:26] LABS: ALT 62 U/L (16-63); AST 31 U/L (15-37); Albumin 3.9 g/dL (3.4-5.0); Alkaline Phosphatase 70 U/L (46-116); Anion Gap 10.2 mmol/L (3-11); BUN 18 mg/dL (7-18); Bilirubin, Total 0.5 mg/dL (0.2-1.0); CO2 27.8 mmol/L (21.0-32.0); Calcium 8.9 mg/dL (8.5-10.1); Chloride 102 mmol/L (98-107); Glucose 157 mg/dL (74-106); LDH 150 U/L (85-227); Potassium 4.5 mmol/L (3.5-5.1); Sodium 140 mmol/L (136-145)
== END 2021-07-08 00:51 | disposition home or self-care (01) ==
PROVIDERS: PCP Internal Medicine; Visit Provider Internal Medicine Hematology & Oncology
DX: C82.00 Follicular lymphoma grade I, unspecified site (principal)
CPT/HCPCS: 36415; 80053; 83615; 85025

== ENCOUNTER 2022-05-19 14:11 | Outpatient (REF) | payer MEDICARE, SELFPAY ==
[2022-05-19 20:38] LABS: ALT 51 U/L (16-63); AST 30 U/L (15-37); Albumin 3.7 g/dL (3.4-5.0); Alkaline Phosphatase 73 U/L (46-116); Anion Gap 5.1 mmol/L (3-11); BUN 21 mg/dL (7-18); Bilirubin, Total 0.5 mg/dL (0.2-1.0); CO2 30.9 mmol/L (21.0-32.0); CREATININE 1.1 mg/dL (0.70-1.30); Calcium 9.2 mg/dL (8.5-10.1); Chloride 100 mmol/L (98-107); Glucose 110 mg/dL (74-106); Potassium 4.5 mmol/L (3.5-5.1); Sodium 136 mmol/L (136-145); Total Protein 6.9 g/dL (6.4-8.2)
[2022-05-19 21:35] LABS: COMMENT (LAB VIEW ONLY) 82.46 mg/dL
[2022-05-19 21:43] LABS: Microalb ug/mg Crea 140.7 ug/mg Cr
== END 2022-05-19 14:12 | disposition home or self-care (01) ==
LOC: NCHCN 14:11
PROVIDERS: PCP Internal Medicine; Visit Provider Physician Assistant
DX: E11.9 Type 2 diabetes mellitus without complications (principal)
CPT/HCPCS: 80053; 82043; 82570

== ENCOUNTER 2022-06-15 03:43 | Outpatient (CLI) | payer MEDICARE, SELFPAY ==
[2022-06-15 12:43] LABS: Abs Immature Grans 0.03 10^3/uL (0.0-0.06); Absolute Basophil Count 0.05 10^3/uL (0.0-0.2); Absolute Eosinophil Count 0.18 10^3/uL (0.0-0.7); Absolute Lymphocyte Count 2.33 10^3/uL (1.2-3.4); Absolute Monocyte Count 0.88 10^3/uL (0.1-0.8); Absolute Neutrophil Count 4.71 10^3/uL (1.2-6.7); Basophils % 0.6; Eosinophils % 2.2; HCT 53.3 % (40.0-50.0); HGB 18.6 g/dL (13.5-17.5); Immature Grans % 0.4; Lymphocytes % 28.5; MCH 32.6 pg (27.0-33.0); MCHC 34.9 % (32.0-36.0); MCV 93 fL (80-95); MPV 11.3 fL (8.0-11.0); Monocytes % 10.8; Neutrophils % 57.5; Platelet Count 156 10^3/uL (130-400); RBC 5.71 10^6/uL (4.36-5.78); RDW 15.8 % (11.8-14.1); RDW-SD 53.5 fL; WBC 8.18 10^3/uL (4.4-10.8)
[2022-06-15 13:00] LABS: ALT 59 U/L (16-63); AST 26 U/L (15-37); Albumin 3.8 g/dL (3.4-5.0); Alkaline Phosphatase 77 U/L (46-116); Anion Gap 11.6 mmol/L (3-11); BUN 24 mg/dL (7-18); Bilirubin, Total 0.5 mg/dL (0.2-1.0); CO2 25.4 mmol/L (21.0-32.0); CREATININE 1.1 mg/dL (0.70-1.30); Calcium 9.2 mg/dL (8.5-10.1); Chloride 103 mmol/L (98-107); Estimated GFR 72.67 (mL/min/1.73m2); Glucose 140 mg/dL (74-106); LDH 163 U/L (85-227); Potassium 4.2 mmol/L (3.5-5.1); Sodium 140 mmol/L (136-145)
== END 2022-06-15 03:44 | disposition home or self-care (01) ==
LOC: LBO 03:45
PROVIDERS: PCP Internal Medicine; Visit Provider Internal Medicine Hematology & Oncology
DX: C82.00 Follicular lymphoma grade I, unspecified site (principal)
CPT/HCPCS: 36415; 80053; 83615; 85025

== ENCOUNTER 2022-12-15 02:58 | Outpatient (CLI) | payer MEDICARE, SELFPAY ==
[2022-12-15 12:06] LABS: Abs Immature Grans 0.05 10^3/uL (0.0-0.06); Absolute Basophil Count 0.06 10^3/uL (0.0-0.2); Absolute Eosinophil Count 0.06 10^3/uL (0.0-0.7); Absolute Lymphocyte Count 2.02 10^3/uL (1.2-3.4); Absolute Monocyte Count 0.85 10^3/uL (0.1-0.8); Absolute Neutrophil Count 5.73 10^3/uL (1.2-6.7); Basophils % 0.7; Eosinophils % 0.7; HCT 52.8 % (40.0-50.0); Immature Grans % 0.6; MCH 33.8 pg (27.0-33.0); MCHC 34.1 % (32.0-36.0); MCV 99 fL (80-95); MPV 10.5 fL (8.0-11.0); Monocytes % 9.7; Neutrophils % 65.3; Platelet Count 163 10^3/uL (130-400); RBC 5.33 10^6/uL (4.36-5.78); RDW 14.2 % (11.8-14.1); RDW-SD 51.7 fL; WBC 8.77 10^3/uL (4.4-10.8)
[2022-12-15 12:51] LABS: ALT 51 U/L (16-63); AST 25 U/L (15-37); Albumin 4.1 g/dL (3.4-5.0); Alkaline Phosphatase 80 U/L (46-116); Anion Gap 10.5 mmol/L (3-11); BUN 25 mg/dL (7-18); Bilirubin, Total 0.5 mg/dL (0.2-1.0); CO2 24.5 mmol/L (21.0-32.0); CREATININE 1.2 mg/dL (0.70-1.30); Calcium 9.6 mg/dL (8.5-10.1); Chloride 102 mmol/L (98-107); Estimated GFR 65.46 (mL/min/1.73m2); Glucose 134 mg/dL (74-106); LDH 148 U/L (85-227); Potassium 4.7 mmol/L (3.5-5.1); Sodium 137 mmol/L (136-145)
[2022-12-17 10:01] LABS: Erythropoietin 16.9 mIU/mL (2.6 - 18.5)
[2022-12-17 17:37] LABS: JAK2 Result see interpretation
== END 2022-12-15 02:59 | disposition home or self-care (01) ==
PROVIDERS: PCP Internal Medicine; Visit Provider Internal Medicine Hematology & Oncology
DX: D75.1 Secondary polycythemia (principal); C82.00 Follicular lymphoma grade I, unspecified site
CPT/HCPCS: 36415; 80053; 82668; 81270; 83615; 85025

== ENCOUNTER 2023-12-01 17:08 | Outpatient (REF) | payer MEDICARE, SELFPAY ==
--- OUTSIDE RECORDS SUMMARY | 2023-12-01 17:11 | XMS_ITS | CCD ---
Author Name Unknown Address [address] [place] [address] [id number] Organization Unknown Address [address] [place] [address] [phone] Care Team Providers Care Manager Mobile Name Role Phone NARENDRA CORONEL Attending Physician [phone] NARENDRA CORONEL Rounding (Secondary) Physician [phone] Vital Signs Unknown or Not Available. Allergies Unknown or Not Available. Procedures Unknown or Not Available. History of Immunizations Unknown or Not Available. Problems Unknown or Not Available. Results Unknown or Not Available. Active Medications Unknown or Not Available. Medications Administered During Visit Unknown or Not Available. Encounters Encounter Diagnosis Diagnosis Code Start Date Snoring [id number] 02/19/2022 Social History Smoking Status Code Start Date End Date Unknown if ever smoked [id number] Patient Decision Aids Unknown or Not Available. Discharge Instructions You were admitted to [facility] on 02/19/2022 14:05 with a principal diagnosis of Snoring You were discharged from [facility] on 02/19/2022 14:05 Should you have any questions prior to discharge, please contact a member of your healthcare team. If you have left the hospital and have any questions, please contact your primary care physician. Chief Complaint and Reason For Visit Unknown or Not Available. Function Status Unknown or Not Available. Plan of Care Unknown or Not Available. Referral/Transition of Care Unknown or Not Available.
--- OUTSIDE RECORDS SUMMARY | 2023-12-01 17:11 | XMS_ITS | CCD ---
Author Name Unknown Address [address] [place] [address] [phone] Organization Unknown Address [address] [place] [address] [phone] Care Team Providers Care Technical Support Consultant Name Role Phone NARENDRA CORONEL Attending Physician [phone] NARENDRA CORONEL Rounding (Secondary) Physician [phone] Vital Signs Unknown or Not Available. Allergies [...] Date End Date Unknown if ever smoked [id number] Patient Decision Aids Unknown or Not Available. Discharge Instructions You were admitted to [facility] on 02/19/2022 10:23 with a principal diagnosis of Snoring You were discharged from [facility] on 02/19/2022 10:23 Should you have any questions prior to [...]
[2023-12-01 19:46] LABS: COMMENT (LAB VIEW ONLY) 104.19 mg/dL; Microalb ug/mg Crea 42.4 ug/mg Cr
== END 2023-12-01 17:09 | disposition home or self-care (01) ==
LOC: NCHCN 17:08
PROVIDERS: PCP Internal Medicine; Visit Provider Physician Assistant
DX: E11.9 Type 2 diabetes mellitus without complications (principal)
CPT/HCPCS: 82043; 82570

== ENCOUNTER 2023-12-19 14:42 | Outpatient (REF) | payer MEDICARE, SELFPAY ==
[2023-12-19 20:26] LABS: Abs Immature Grans 0.04 10^3/uL (0.0-0.06); Absolute Basophil Count 0.04 10^3/uL (0.0-0.2); Absolute Eosinophil Count 0.11 10^3/uL (0.0-0.7); Absolute Lymphocyte Count 2.07 10^3/uL (1.2-3.4); Absolute Neutrophil Count 4.83 10^3/uL (1.2-6.7); Basophils % 0.5; Eosinophils % 1.4; HCT 49.9 % (40.0-50.0); HGB 17.2 g/dL (13.5-17.5); Immature Grans % 0.5; Lymphocytes % 26.6; MCH 33.3 pg (27.0-33.0); MCHC 34.5 % (32.0-36.0); MCV 97 fL (80-95); MPV 11.1 fL (8.0-11.0); Platelet Count 191 10^3/uL (130-400); RBC 5.17 10^6/uL (4.36-5.78); RDW 13.4 % (11.8-14.1); RDW-SD 48.3 fL; WBC 7.79 10^3/uL (4.4-10.8)
[2023-12-19 20:38] LABS: ALT 42 U/L (16-63); AST 24 U/L (15-37); Albumin 3.9 g/dL (3.4-5.0); Alkaline Phosphatase 87 U/L (46-116); Anion Gap 12.2 mmol/L (3-11); BUN 23 mg/dL (7-18); Bilirubin, Total 0.7 mg/dL (0.2-1.0); CO2 23.8 mmol/L (21.0-32.0); Calcium 9.2 mg/dL (8.5-10.1); Calculated LDL 49 mg/dL (<100); Chloride 101 mmol/L (98-107); Cholesterol 117 mg/dL (<200); Estimated GFR 80.97 (mL/min/1.73m2); Glucose 134 mg/dL (74-106); HDL Cholesterol 46 mg/dL (40-60); Potassium 4.7 mmol/L (3.5-5.1); Sodium 137 mmol/L (136-145); Total Protein 6.8 g/dL (6.4-8.2); Triglyceride 112 mg/dL (<150)
== END 2023-12-19 14:43 | disposition home or self-care (01) ==
LOC: NCHCN 14:42
PROVIDERS: PCP Internal Medicine; Visit Provider Physician Assistant
DX: E11.9 Type 2 diabetes mellitus without complications (principal)
CPT/HCPCS: 80053; 80061; 85025

== ENCOUNTER 2024-01-11 16:05 | Outpatient (CLI) | payer MEDICARE, SELFPAY ==
[2024-01-11 12:42] LABS: Abs Immature Grans 0.07 10^3/uL (0.0-0.06); Absolute Basophil Count 0.04 10^3/uL (0.0-0.2); Absolute Monocyte Count 0.91 10^3/uL (0.1-0.8); Absolute Neutrophil Count 5.77 10^3/uL (1.2-6.7); Basophils % 0.4; Eosinophils % 1.1; HCT 50.9 % (40.0-50.0); HGB 17.3 g/dL (13.5-17.5); Immature Grans % 0.8; Lymphocytes % 22.5; MCH 34.1 pg (27.0-33.0); MCV 100 fL (80-95); MPV 10.5 fL (8.0-11.0); Monocytes % 10.2; Platelet Count 172 10^3/uL (130-400); RBC 5.08 10^6/uL (4.36-5.78); RDW 14.6 % (11.8-14.1); RDW-SD 53.9 fL; WBC 8.89 10^3/uL (4.4-10.8)
[2024-01-11 13:00] LABS: ALT 42 U/L (16-63); AST 22 U/L (15-37); Albumin 3.8 g/dL (3.4-5.0); Alkaline Phosphatase 74 U/L (46-116); Anion Gap 9.7 mmol/L (3-11); BUN 26 mg/dL (7-18); Bilirubin, Total 0.5 mg/dL (0.2-1.0); CO2 24.3 mmol/L (21.0-32.0); CREATININE 0.9 mg/dL (0.70-1.30); Calcium 9.3 mg/dL (8.5-10.1); Chloride 104 mmol/L (98-107); Estimated GFR 91.88 (mL/min/1.73m2); Glucose 103 mg/dL (74-106); LDH 138 U/L (85-227); Potassium 4.5 mmol/L (3.5-5.1); Sodium 138 mmol/L (136-145); Total Protein 6.8 g/dL (6.4-8.2)
== END 2024-01-11 16:06 | disposition home or self-care (01) ==
LOC: LBO 16:06
PROVIDERS: PCP Internal Medicine; Visit Provider Internal Medicine Hematology & Oncology
DX: C82.08 Follicular lymphoma grade I, lymph nodes of multiple sites (principal)
CPT/HCPCS: 36415; 80053; 83615; 85025

== ENCOUNTER 2024-07-18 02:18 | Outpatient (CLI) | payer MEDICARE, SELFPAY ==
[2024-07-18 09:51] LABS: Abs Immature Grans 0.03 10^3/uL (0.0-0.06); Absolute Basophil Count 0.05 10^3/uL (0.0-0.2); Absolute Eosinophil Count 0.07 10^3/uL (0.0-0.7); Absolute Lymphocyte Count 1.87 10^3/uL (1.2-3.4); Absolute Neutrophil Count 5.84 10^3/uL (1.2-6.7); Basophils % 0.6 %; Eosinophils % 0.8 %; HCT 49.4 % (40.0-50.0); HGB 16.6 g/dL (13.5-17.5); Immature Grans % 0.3 %; Lymphocytes % 21.6 %; MCH 33.5 pg (27.0-33.0); MCHC 33.6 % (32.0-36.0); MCV 100 fL (80-95); MPV 10.4 fL (8.0-11.0); Monocytes % 9.2 %; Neutrophils % 67.5 %; Platelet Count 159 10^3/uL (130-400); RBC 4.95 10^6/uL (4.36-5.78); RDW 13.9 % (11.8-14.1); RDW-SD 51.6 fL; WBC 8.66 10^3/uL (4.4-10.8)
[2024-07-18 10:12] LABS: ALT 35 U/L (16-63); AST 20 U/L (15-37); Albumin 3.8 g/dL (3.4-5.0); Alkaline Phosphatase 87 U/L (46-116); Anion Gap 10.7 mmol/L (3-11); BUN 25 mg/dL (7-18); Bilirubin, Total 0.51 mg/dL (0.2-1.0); CO2 25.3 mmol/L (21.0-32.0); CREATININE 1.2 mg/dL (0.70-1.30); Calcium 9.3 mg/dL (8.5-10.1); Chloride 99 mmol/L (98-107); Estimated GFR 64.65 (mL/min/1.73m2); Glucose 114 mg/dL (74-106); LDH 129 U/L (85-227); Potassium 4.7 mmol/L (3.5-5.1); Sodium 135 mmol/L (136-145); Total Protein 6.8 g/dL (6.4-8.2)
[2024-07-19 10:03] LABS: IgA 170 mg/dL (85-499); IgG 338 mg/dL (610-1616); IgM 16 mg/dL (35-242)
== END 2024-07-18 02:19 | disposition home or self-care (01) ==
PROVIDERS: PCP Internal Medicine; Visit Provider Nurse Practitioner Adult Health
DX: C82.00 Follicular lymphoma grade I, unspecified site (principal)
CPT/HCPCS: 36415; 80053; 82784; 83615; 85025

== ENCOUNTER 2025-01-25 11:09 | Outpatient (REF) | payer MEDICARE, SELFPAY ==
[2025-01-28 08:08] LABS: PSA, Screening 0.3 ng/mL (<=6.5)
== END 2025-01-25 11:10 | disposition home or self-care (01) ==
LOC: NCHCN 11:09
PROVIDERS: PCP Internal Medicine; Visit Provider Physician Assistant
DX: Z12.5 Encounter for screening for malignant neoplasm of prostate (principal)
CPT/HCPCS: 84153

== ENCOUNTER 2025-02-13 00:51 | Outpatient (CLI) | payer MEDICARE, SELFPAY ==
--- NOTE | 2025-02-13 | DI.US_ITS ---
Exam(s) US AAA SCREENING EXAM: US AAA SCREENING CLINICAL HISTORY: F17.200 Nicotine dependence, unspecified, uncomplicated COMPARISON: No exams were available for comparison FINDINGS: Exam is limited by patient body habitus. Abdominal Aorta: Proximal: 2.1 cm Mid: 2.1 cm Distal: 1.9 cm Iliacs: Right: 1 cm Left: 1 cm IMPRESSION: No evidence of abdominal aortic aneurysm. DATA REPOSITORY:
== END 2025-02-13 01:11 ==
LOC: DI 00:51
PROVIDERS: PCP Internal Medicine; Visit Provider Physician Assistant
DX: Z13.6 Encounter for screening for cardiovascular disorders (principal); F17.210 Nicotine dependence, cigarettes, uncomplicated
CPT/HCPCS: 76706

== ENCOUNTER 2025-07-24 09:45 | Outpatient (CLI) | payer MEDICARE, SELFPAY ==
[2025-07-24 09:59] LABS: Abs Immature Grans 0.04 10^3/uL (0.0-0.06); HCT 51.9 % (40.0-50.0); HGB 17.7 g/dL (13.5-17.5); Immature Grans % 0.5 %; MCH 33.7 pg (27.0-33.0); MCHC 34.1 % (32.0-36.0); MCV 99 fL (80-95); MPV 10.5 fL (8.0-11.0); Platelet Count 131 10^3/uL (130-400); RBC 5.25 10^6/uL (4.36-5.78); RDW 14.1 % (11.8-14.1); RDW-SD 51.7 fL; WBC 8.22 10^3/uL (4.4-10.8)
[2025-07-24 10:14] LABS: ALT 50 U/L (16-63); AST 25 U/L (15-37); Albumin 3.9 g/dL (3.4-5.0); Alkaline Phosphatase 92 U/L (46-116); Anion Gap 10.3 mmol/L (3-11); BUN 24 mg/dL (7-18); Bilirubin, Total 0.7 mg/dL (0.2-1.0); CO2 26.7 mmol/L (21.0-32.0); Calcium 9.1 mg/dL (8.5-10.1); Chloride 99 mmol/L (98-107); Estimated GFR 71.32 (mL/min/1.73m2); Glucose 149 mg/dL (74-106); LDH 144 U/L (85-227); Potassium 4.8 mmol/L (3.5-5.1); Sodium 136 mmol/L (136-145); Total Protein 6.8 g/dL (6.4-8.2)
== END 2025-07-24 09:46 | disposition home or self-care (01) ==
LOC: LBO 09:46
PROVIDERS: PCP Internal Medicine; Visit Provider Nurse Practitioner Adult Health
DX: C82.00 Follicular lymphoma grade I, unspecified site (principal)
CPT/HCPCS: 36415; 80053; 82784; 83615; 85025